=== PATIENT | female | born 1955 | race Caucasian/White ===

== ENCOUNTER 2025-02-14 18:13 | Emergency (ER) | payer OTHER, SELFPAY ==
[2025-02-14 18:22] VITALS: BP 127/85
[2025-02-14 19:44] VITALS: BMI 32.1
[2025-02-14 20:32] LABS: % Basophils 0.3 % (0-2); % Eosinophils 2.5 % (0-6); % Immature Granulocytes 0.4 % (0-0.5); % Lymphocytes 35.7 % (20.5-51.1); % Monocytes 6.8 % (1.7-9.3); % Neutrophils 54.3 % (42.2-75.2); Absolute Eosinophils 0.2 10^3/uL (0-0.7); Absolute Lymphocytes 3.2 10^3/uL (1.2-3.4); Absolute Monocytes 0.6 10^3/uL (0.1-0.6); Absolute Neutrophils 4.9 10^3/uL (1.4-6.5); Hematocrit 40.5 % (37.0-47.0); Hemoglobin 13.7 g/dL (12.0-16.0); Mean Corp Hgb Conc. 33.8 g/dL (33.0-37.0); Mean Corpuscular Hgb 29.4 pg (27.0-31.0); Mean Corpuscular Volume 86.9 fL (81.0-99.0); Mean Platelet Volume 9.6 fL (7.4-10.4); Nucleated Red Blood Cells % 0 %; Platelet Count 230 10^3/uL (130-400); Red Blood Cell Count 4.66 10^6/uL (4.20-5.40); Red Cell Dist. Width 13.4 % (11.5-14.5); White Blood Cell Count 8.9 10^3/uL (4.8-10.8)
[2025-02-14 20:38] LABS: Erythrocyte Sed Rate 2 mm/hour (0-20)
[2025-02-14 20:51] LABS: C-Reactive Protein < 5.00 mg/L (0.0-10.00)
[2025-02-14 21:22] LABS: ALT (SGPT) 19 U/L (0-35); AST (SGOT) 18 U/L (14-36); Albumin 3.7 g/dl (3.5-5.0); Alkaline Phosphatase 90 U/L (38-126); Blood Urea Nitrogen 16 mg/dl (7-17); Calcium 9.8 mg/dl (8.4-10.2); Carbon Dioxide 25 mmol/L (22-30); Chloride 104 mmol/L (98-107); Estimated Creatinine Clearance 116 ml/min; Glucose 113 mg/dl (70-99); Potassium 3.9 mmol/L (3.5-5.1); Sodium 136 mmol/L (135-145); Total Bilirubin 0.7 mg/dl (0.2-1.3); Total Protein 6.2 g/dl (6.3-8.2); eGFR > 60.00
--- NOTE | 2025-02-14 23:35 | ED.GENMED ---
History of Present Illness
General
Chief Complaint: Extremity Pain (non-traumatic)
Source: patient and family (daughter)
Exam Limitations: none
Time Seen by Provider: 02/14/25 19:31
History of Present Illness
History of Present Illness:
Patient to ED with complaint of painful lumps on left upper arm and left thigh. SHe has had arm lump for some time but now it has become painful. Brought to ED by daughter cheryl barragan. Denies fever/chills, recent illness. No history of trauma
Past History
Past History
ED Past Medical History: HTN
ED Past Surgical History: Cholecystectomy
Social History
Tobacco: Non-smoker
Alcohol: None
Review of Systems
Review of Systems
Allergies reviewed?: Yes
All Other Systems: ROS reviewed and negative except as documented in HPI and ROS
Constitutional: Reports no symptoms
EENT: Reports no symptoms
Respiratory: Reports no symptoms
Cardiac: Reports no symptoms
ABD/GI: Reports no symptoms
: Reports no symptoms
Musculoskeletal: Reports no symptoms
Skin: Reports other (painful 'lumps' LUE, left thigh)
Neurological: Reports no symptoms
Psychiatric: Reports no symptoms
Phy Exam
General Physical Exam
General Presentation: well appearing and no apparent distress
General age: appears stated age
General Skin: warm and dry
General Habitus: normal
General Mental: alert
General Hydration: appears well hydrated
Musculoskeletal Exam
Musculoskeletal Exam: full ROM and neuro vasc intact
Skin Exam
Skin Exam: normal color, warm/dry, no rash and other (2 painful nodules noted on left upper arm and one painful nodule left groin. No redness to site.)
Psychiatric Exam
Psychiatric Exam: normal mood/affect
Course
Orders/Labs/Results
Orders:
Orders
02/14/25 19:41
Non Vasc Upper Ext Left US [US Non Vasc UPPER Ext LT] Urgent
Comment:
Reason For Exam: painful mass left upper arm
US Non Vasc LOWER Ext LT Urgent
Comment:
Reason For Exam: painful swelling left groin
02/14/25 20:24
CRP [C-Reactive Protein] Urgent
Complete Blood Count/With Diff Urgent
Comprehensive Metabolic Panel Urgent
Sed Rate [Erythrocyte Sed Rate] Urgent
Abnormal Lab Results
02/14/25
20:24
Glucose 113 H mg/dl
(70-99)
Total Protein 6.2 L g/dl
(6.3-8.2)
02/14/25 20:24
02/14/25 20:24
Vital Signs
Initial and Last Documented VS:
Initial Vital Signs
Temp Pulse BP Pulse Ox
98.9 F 81 127/85 96
02/14/25 18:22 02/14/25 18:22 02/14/25 18:22 02/14/25 18:22
Last Documented Vital Signs
Temp Pulse BP Pulse Ox
98.9 F 81 127/85 96
02/14/25 18:22 02/14/25 18:22 02/14/25 18:22 02/14/25 18:22
ED Attending Note
-
Portions of this chart may have been created with voice recognition software.� Occasional wrong word or��sound alike� substitutions may have occurred due to the inherent limitations of voice recognition software.
Discharge Plan
Departure
Patient Disposition: Home (Routine Discharge)
Date of Disposition: 02/14/25
Time of Disposition: 21:59
Patient with high blood pressure during this ER visit?: No
Condition: Good
Covid-19: Not Applicable
Discharge Problem:
[place]
Instructions: [place]
Referrals:
Ga Oates MD [Active] -
Matthew Beasley MD [Family Provider] - Call in 1-3 days for appt
Interventions
Interventions:
*Risk Screen - Suicide Last Done: 02/14/25 18:22
*General Assessment Last Done: 02/14/25 18:22
*Neglect/Abuse Screening Last Done: 02/14/25 18:22
*ED- Fall Risk Assessment Last Done: 02/14/25 19:45
*ED COVID-19 Vaccine History Last Done: 02/14/25 19:45
*Nursing Disposition Last Done: 02/14/25 22:02
ED-Skin Assessment Last Done: 02/14/25 19:46
ED-Peripheral Vascular Assessment Last Done: 02/14/25 19:46
ED-Musculoskeletal Assessment Last Done: 02/14/25 19:46
Discharge Date and Time
Discharge Date/Time: 02/14/25 22:02
Print Language: MONGOLIAN
== END 2025-02-14 22:02 | disposition home or self-care (01) ==
LOC: EMR 18:13
PROVIDERS: Nurse Practitioner; EMERGENCY PHYSICIAN Emergency Medicine; FAMILY PHYSICIAN Family Medicine
DX: D17.22 Benign lipomatous neoplasm of skin and subcutaneous tissue of left arm (principal); D17.24 Benign lipomatous neoplasm of skin and subcutaneous tissue of left leg; I10 Essential (primary) hypertension; Z90.49 Acquired absence of other specified parts of digestive tract
CPT/HCPCS: 99284; 76882; 80053; 85025; 85652; 86140

== ENCOUNTER → 2025-06-06 08:37 | Outpatient (REF) | payer OTHER, SELFPAY | LOC: RAD 08:37 | PROVIDERS: ATTENDING PHYSICIAN Obstetrics & Gynecology; PRIMARYCARE PHYSICIAN Family Medicine | DX: R93.89 Abnormal findings on diagnostic imaging of other specified body structures (principal) | CPT/HCPCS: 76830; 76856 ==

== ENCOUNTER → 2025-06-15 19:32 | Outpatient (REF) | payer OTHER, SELFPAY | LOC: WDC 19:32 | PROVIDERS: ATTENDING PHYSICIAN Obstetrics & Gynecology; FAMILY PHYSICIAN Family Medicine | DX: Z12.31 Encounter for screening mammogram for malignant neoplasm of breast (principal) | CPT/HCPCS: 77063; 77067 ==

== ENCOUNTER → 2025-06-22 08:02 | Outpatient (REF) | payer OTHER, SELFPAY | LOC: WDC 08:02 | PROVIDERS: ATTENDING PHYSICIAN Obstetrics & Gynecology; FAMILY PHYSICIAN Family Medicine | DX: R92.8 Other abnormal and inconclusive findings on diagnostic imaging of breast (principal) | CPT/HCPCS: 76642 ==